=== PATIENT | female | born 1955 | race Caucasian/White ===

== ENCOUNTER 2017-02-21 09:35 | Day surgery (SDC) | payer SELFPAY ==
[~2017-02-21] VITALS: Ht 167.6 cm; Wt 60.3 kg
[~2017-02-21 09:35] MED LIST: BIOTIN2500 MCG PO; ECHINACEA HERB380 MG PO; IRON45 MG PO; KETOPROFEN75 MG PO; MEDROL4 MG PO; NORCO 5-325 TA1 EACH PO; SINGULAIR10 MG PO; VITAMIN B-1250 MCG PO; VITAMIN D400 UNIT/1 PO
[2017-02-21] MEDS ORDERED: TURMERIC500 M2 PO (10:05)
== END 2017-02-21 11:25 | disposition home or self-care (01) ==
LOC: DSVR 09:35 → OPS 09:35 → DS 10:30 → OPS 11:25
PROVIDERS: Ophthalmology
PROC: 08RK3JZ Replacement of Left Lens with Synthetic Substitute, Percutaneous Approach (ICD-10-PCS; principal; 2017-02-21 10:30)
DX: H25.12 Age-related nuclear cataract, left eye (principal); E78.00 Pure hypercholesterolemia, unspecified; M06.9 Rheumatoid arthritis, unspecified; J45.909 Unspecified asthma, uncomplicated; Z88.8 Allergy status to other drugs, medicaments and biological substances; Z79.899 Other long term (current) drug therapy; Z87.891 Personal history of nicotine dependence
CPT/HCPCS: 00140; J2250

== ENCOUNTER 2023-05-09 09:15 | Emergency (ER) | payer MEDICARE ==
[~2023-05-09] VITALS: Ht 167.6 cm; Wt 52.5 kg
[~2023-05-09 09:15] MED LIST changes: +TURMERIC500 M2 PO
[2023-05-09] MEDS ORDERED: SODIUM CHLORIDE 0.9% 1,000 ML IV ONE ×2 (09:45→10:45)
[2023-05-09] MEDS ORDERED: ondansetron HCL 4 MG/2 ML VIAL IV ONE (09:45)
[2023-05-09] MEDS ORDERED: ACETAMINOPHEN 500 MG TAB PO ONE (09:45)
[2023-05-09 09:53] LABS: BASOPHILS 0.3 % (0-2); HEMATOCRIT 34.3 % (35.0-50.0); HEMOGLOBIN 11.9 g/dL (12.0-18.0); LYMPHOCYTES 10.6 % (24-44); MCH 32.3 (27-36); MCHC 34.7 g/dl (30-36); MCV 93.1 fl (81-99); MONOCYTES 16.7 % (0-12); NEUTROPHILS 72.4 % (39-80); PLATELET COUNT 196 K/uL (140-440); RBC 3.68 M/ul (4.3-5.7); RDW 13.1 (10.5-15.0)
[2023-05-09] MEDS ORDERED: ALENDRONATE SOD70 MG PO (10:01)
[2023-05-09] MEDS ORDERED: HYDROXYCHLOROQ200 MG PO (10:01)
[2023-05-09] MEDS ORDERED: LEFLUNOMIDE20 MG PO (10:01)
[2023-05-09] MEDS ORDERED: VENTOLIN HFA18 GM INH ×3 (10:02→12:41)
[2023-05-09 10:07] LABS: ALBUMIN 2.7 g/dL (3.4-5.0); ALBUMIN/GLOBULIN RATIO 0.61 (1.1-2.4); ANION GAP 13.4 (7-21); BILIRUBIN, TOTAL 0.6 ng/dL (0.2-1.0); BUN/CREATININE RATIO 24.63 (6.0-28.6); CALCIUM 8.1 mg/dL (8.5-10.1); CREATININE, SERUM 0.69 mg/dL (0.55-1.02); POTASSIUM 3.4 mmol/L (3.5-5.1); PROTEIN, TOTAL 7.1 g/dL (6.4-8.2)
[2023-05-09 10:28] LABS: INFLUENZA B NAA NEGATIVE (NEGATIVE); RESPIRATORY SYNCYTIAL VIR NAA NEGATIVE (NEGATIVE)
[2023-05-09] MEDS ORDERED: POTASSIUM CHLORIDE 10 MEQ TABCR PO ONE (10:45)
[2023-05-09] MEDS ORDERED: KETOROLAC TROMETHAMINE 15 MG/ML VIAL IV ONE (11:00)
[2023-05-09] MEDS ORDERED: PREDNISONE20 MG PO (12:41)
[2023-05-09] MEDS ORDERED: ONDANSETRON ODT8 MG PO (12:41)
[2023-05-09] MEDS ORDERED: methylPREDNISolone SOD SUCC 125 MG/2 ML VIAL IV ONE (12:45)
[2023-05-09] MEDS ORDERED: ALBUTEROL/IPRATROPIUM 3 ML NEB INH ONE (12:45)
[2023-05-09 14:07] VITALS: BP 125/85
== END 2023-05-09 14:02 | disposition home or self-care (01) ==
LOC: ED 09:15
PROVIDERS: Emergency Medicine
DX: J10.1 Influenza due to other identified influenza virus with other respiratory manifestations (principal); Z87.891 Personal history of nicotine dependence; J45.909 Unspecified asthma, uncomplicated; M19.90 Unspecified osteoarthritis, unspecified site; Z79.899 Other long term (current) drug therapy; Z88.8 Allergy status to other drugs, medicaments and biological substances; Z91.018 Allergy to other foods
CPT/HCPCS: 36415; 71045; 80053; 85025; 87502; 94640; 96361; 96374; 96375; 99284-25; A9270; J1885; J2405; J2930; J7030; U0002